=== PATIENT | male | born 1985 | race Caucasian/White ===

== ENCOUNTER 2017-05-09 22:46 | Emergency (ER) | payer MEDICAID ==
[2017-05-09 23:14] VITALS: BP 158/101
[2017-05-09] MEDS ORDERED: Bacitracin Oint 1 GM U/D Packet TOP ONE (23:17)
--- NOTE | 2017-05-09 23:20 | EDM.PDOC ---
ED HPI GENERAL MEDICAL PROBLEM - General Stated Complaint: CUT SHOULDER Time Seen by Provider: 05/09/17 23:15 Source of Information: Reports: Patient History Limitations: Reports: No Limitations - History of Present Illness INITIAL COMMENTS - FREE TEXT/NARRATIVE: 32-year-old male sustaining a laceration on his right shoulder when he struck it against the wood stove. Onset: Sudden Duration: Hour(s): (Within the last 2 hours) Location: Reports: Upper Extremity, Right Severity: Mild Associated Symptoms: Reports: No Other Symptoms - Related Data Allergies Allergy/AdvReac Type Severity Reaction Status Date / Time latex Allergy Other Verified 05/09/17 23:56 Sulfa (Sulfonamide Allergy Rash Verified 05/09/17 23:56 Antibiotics) Home Meds: Home Meds NK [No Known Home Meds] 09/07/14 [History] Past Medical History Other Genitourinary History: pt. has to self cath r/t thrown urethra during a surgery Social & Family History - Tobacco Use Smoking Status *Q: Never Smoker Second Hand Smoke Exposure: No - Alcohol Use Days Per Week of Alcohol Use: 2 Number of Drinks Per Day: 2 Total Drinks Per Week: 4 - Recreational Drug Use Recreational Drug Use: No ED ROS GENERAL - Review of Systems Review Of Systems: See Below Constitutional: Denies: Fever Respiratory: Denies: Shortness of Breath Cardiovascular: Denies: Chest Pain GI/Abdominal: Denies: Abdominal Pain Neurological: Reports: No Symptoms Psychiatric: Reports: No Symptoms ED EXAM, SKIN/RASH Exam: See Below Exam Limited By: No Limitations General Appearance: Alert, No Apparent Distress Respiratory/Chest: No Respiratory Distress Extremities: Other (Exam is otherwise limited to the right shoulder. The patient has a 3.5 cm curved flap laceration into the subcutaneous tissue on the right shoulder) Course - Vital Signs Last Recorded V/S: Last Vital Signs Temp 95.4 F 05/09/17 23:59 Pulse 99 05/09/17 23:59 Resp 16 05/09/17 23:59 BP 158/101 H 05/09/17 23:59 Pulse Ox 95 05/09/17 23:59 - Orders/Labs/Meds Meds: Medications Discontinued Medications Generic Name Dose Route Start Last Admin Trade Name Freq PRN Reason Stop Dose Admin Bacitracin 1 dose 05/09/17 23:17 05/10/17 00:00 Bacitracin Oint 1 Gm TOP 05/09/17 23:18 1 dose ONETIME ONE Administration Lidocaine HCl 5 ml 05/09/17 23:17 05/10/17 00:00 Xylocaine-Mpf 1% INJECT 05/09/17 23:18 5 ml ONETIME ONE Administration - Re-Assessments/Exams Free Text/Narrative Re-Assessment/Exam: 05/09/17 23:49 The area was anesthetized with 1% lidocaine, cleansed thoroughly with saline and 6 4-0 Ethilon sutures were used to close the wound. Topical bacitracin and a bandage was applied and the sutures can be removed in 8 days, next Tuesday. Departure - Departure Time of Disposition: 00:07 Disposition: Home, Self-Care 01 Condition: Good Clinical Impression: Laceration of right shoulder Qualifiers: Encounter type: initial encounter Qualified Code(s): S41.011A - Laceration without foreign body of right shoulder, initial encounter - Discharge Information Instructions: Laceration Care, Adult, [id number] Referrals: PCP,None [Primary Care Provider] - Forms: ED Department Discharge Care Plan Goals: Keep wound covered and clean while healing. Sutures can be removed next Tuesday morning. Return sooner if concerns of infection or not healing satisfactorily.
== END 2017-05-10 00:07 | disposition home or self-care (01) ==
LOC: JP.ED 22:46
DX: S41.011A Laceration without foreign body of right shoulder, initial encounter (principal); W22.8XXA Striking against or struck by other objects, initial encounter; Z91.040 Latex allergy status; Z88.2 Allergy status to sulfonamides
CPT/HCPCS: 12002; 99283-25

== ENCOUNTER 2021-07-04 09:53 | Emergency (ER) | payer BC, MEDICAID ==
[2021-07-04 10:29] VITALS: BP 137/92; PULSE 97
[2021-07-04] MEDS ORDERED: Lidocaine 2% Jelly 10 ML Urojet MUCMEM ONE (10:49)
[2021-07-04] MEDS ORDERED: Cephalexin 250 MG Cap PO ONE (11:51)
== END 2021-07-04 12:33 | disposition home or self-care (01) ==
LOC: JP.ED 09:53
DX: T83.511A Infection and inflammatory reaction due to indwelling urethral catheter, initial encounter (principal); N39.0 Urinary tract infection, site not specified; R33.9 Retention of urine, unspecified; N31.9 Neuromuscular dysfunction of bladder, unspecified; Q05.9 Spina bifida, unspecified; Z91.040 Latex allergy status; Z88.2 Allergy status to sulfonamides
CPT/HCPCS: 51702; 81001; 87086; 87088; 87186; 99283; 99283-25; A9270-GY

== ENCOUNTER 2021-09-29 09:45 | Emergency (ER) | payer BC ==
[2021-09-29 10:04] VITALS: BP 148/99; PULSE 71
[2021-09-29] MEDS ORDERED: HYDROmorphone 0.5 MG/0.5 ML Syringe IM ONE (10:18)
[2021-09-29] MEDS ORDERED: cefTRIAXone 1 GM Vial IM ONE (11:03)
[2021-09-29] MEDS ORDERED: Lidocaine 1% 5 ML VIAL INJECT ONE (11:05)
[2021-09-29] MEDS ORDERED: Bacitracin Oint 1 GM U/D Packet TOP ONE (11:12)
== END 2021-09-29 11:31 | disposition home or self-care (01) ==
LOC: JP.ED 09:45
DX: S60.452A Superficial foreign body of right middle finger, initial encounter (principal); Z91.040 Latex allergy status; Z88.2 Allergy status to sulfonamides; W45.8XXA Other foreign body or object entering through skin, initial encounter
CPT/HCPCS: 73140; 96372; 99283; J0696; J1170; 99281

== ENCOUNTER 2024-03-16 07:23 | Day surgery (SDC) | payer BC ==
[2024-03-16] MEDS ORDERED: Propofol 200 MG/20 ML SDV ONE (07:39)
[2024-03-16] MEDS ORDERED: fentaNYL 50 MCG/ML SDV ONE (07:39)
[2024-03-16] MEDS ORDERED: Midazolam 1 MG/ML 2 ML SDV ONE (07:39)
[2024-03-16] MEDS: Lactated Ringers 1,000 ML IV SCH (08:11)
[2024-03-16 10:17] VITALS: BP 120/79; PULSE 58
== END 2024-03-16 10:30 | disposition home or self-care (01) ==
LOC: JP.SDS 07:23
PROVIDERS: ATTEND Family Medicine
DX: K59.09 Other constipation (principal); K21.9 Gastro-esophageal reflux disease without esophagitis; Z91.041 Radiographic dye allergy status; Z88.2 Allergy status to sulfonamides; Z91.040 Latex allergy status
CPT/HCPCS: 45378; J2250; J2704; J3010; J7120; 00811-QZ